=== PATIENT | female | born 1945 | race Caucasian/White ===

== ENCOUNTER → 2016-04-24 | Outpatient (CLI) | payer OTHER, MEDICARE | LOC: FIMAGING 13:59 | DX: Z12.31 Encounter for screening mammogram for malignant neoplasm of breast (principal) | CPT/HCPCS: G0202 ==

== ENCOUNTER → 2016-10-02 | Outpatient (CLI) | payer OTHER, MEDICARE | LOC: FIMAGING 08:51 | PROVIDERS: ATTEND Family Medicine | DX: Z13.820 Encounter for screening for osteoporosis (principal); M85.80 Other specified disorders of bone density and structure, unspecified site; Z82.62 Family history of osteoporosis ==

== ENCOUNTER → 2017-05-29 | Outpatient (CLI) | payer OTHER, MEDICARE | LOC: FIMAGING 08:41 | PROVIDERS: ATTEND Family Medicine | DX: Z12.31 Encounter for screening mammogram for malignant neoplasm of breast (principal) ==

== ENCOUNTER → 2018-07-15 | Outpatient (CLI) | payer OTHER, MEDICARE | LOC: FIMAGING 14:22 | PROVIDERS: ATTEND Family Medicine | DX: Z12.31 Encounter for screening mammogram for malignant neoplasm of breast (principal) ==